=== PATIENT | female | born 1940 | race Caucasian/White ===

== ENCOUNTER 2016-08-02 12:39 | Emergency (ER) | payer MEDICARE, OTHER ==
[~2016-08-02] VITALS: Ht 160 cm; Wt 89.2 kg
[2016-08-02] MEDS ORDERED: SODIUM CHLORIDE FLUSH 10ML SYR IVF ONE ×2 (13:30→17:30)
[2016-08-02 14:01] LABS: HEMOGLOBIN 15.5 g/dL (11.7-16.4)
[2016-08-02 14:14] LABS: BLOOD UREA NITROGEN 19 mg/dL (7-18)
[2016-08-02 14:18] LABS: IS PT STATUS REG ER OR PRE ER? YES
[2016-08-02] MEDS ORDERED: SODIUM CHLORIDE 0.9% 1,000 ML IV ONE (17:25)
[2016-08-02] MEDS ORDERED: CEFTRIAXONE PMX 1GM/50ML 50 ML IV ONE (17:30)
[2016-08-02] MEDS ORDERED: LORazepam 2 MG/ML, 1ML IVPush ONE (17:30)
[2016-08-02] MEDS ORDERED: SODIUM CHLORIDE 0.9% 1,000ML IVBOLUS ONE (17:30)
[2016-08-02] MEDS ORDERED: CEFTRIAXONE PMX 1GM/50ML 50 ML ONE (18:11)
[2016-08-02] MEDS ORDERED: LORazepam 1MG TABLET ONE (18:11)
[2016-08-02] MEDS: AZITHROMYCIN 500 MG in SODIUM CHLORIDE 0.9% 250 ML IV ONE ×2 (18:18→19:11)
[2016-08-02 20:33] VITALS: BP 142/90
== END 2016-08-02 20:35 | disposition home or self-care (01) ==
LOC: ED 18:43
DX: Z76.0 Encounter for issue of repeat prescription (principal); J15.9 Unspecified bacterial pneumonia; E86.0 Dehydration; J44.9 Chronic obstructive pulmonary disease, unspecified; F41.9 Anxiety disorder, unspecified; I12.9 Hypertensive chronic kidney disease with stage 1 through stage 4 chronic kidney disease, or unspecified chronic kidney disease; N18.9 Chronic kidney disease, unspecified
CPT/HCPCS: 36415; 71010; 80048; 82040; 83605; 83880; 84145; 84484; 85025; 87040; 93005; 96365; 96367; 96375; 99285; J0456; J0696; J2060; J7030; J7050

== ENCOUNTER 2016-08-16 11:10 | Inpatient (IN) | payer MEDICARE, OTHER ==
[~2016-08-16] VITALS: Ht 160 cm; Wt 91.9 kg
[2016-08-16] MEDS ORDERED: SODIUM CHLORIDE 0.9% 1,000 ML IV ONE (11:37)
[2016-08-16] MEDS ORDERED: SODIUM CHLORIDE FLUSH 10ML SYR IVF ONE (12:00)
[2016-08-16 12:11] LABS: HEMOGLOBIN 14.3 g/dL (11.7-16.4)
[2016-08-16 12:23] LABS: BLOOD UREA NITROGEN 15 mg/dL (7-18)
[2016-08-16 12:29] LABS: ASPARTATE AMINO TRANSFERASE 16 U/L (15-37)
[2016-08-16 12:30] LABS: IS PT STATUS REG ER OR PRE ER? YES
[2016-08-16] MEDS ORDERED: CHOL20003 PO (14:02)
[2016-08-16] MEDS ORDERED: FURO20TA3 PO (14:02)
[2016-08-16] MEDS ORDERED: PRAV40TA2 PO (14:02)
[2016-08-16] MEDS ORDERED: OXYB5TAB7 PO (14:02)
[2016-08-16] MEDS ORDERED: ASPI-496 PO (14:02)
[2016-08-16] MEDS ORDERED: AMLO10TA2 PO (14:02)
[2016-08-16] MEDS ORDERED: LETR2.5T PO (14:02)
[2016-08-16] MEDS ORDERED: LORA1TAB PO (14:02)
[2016-08-16] MEDS ORDERED: METO50TA82 PO (14:02)
[2016-08-16] MEDS ORDERED: VENL150C6 PO (14:02)
[2016-08-16] MEDS ORDERED: ACET325T14 PO (14:02)
[2016-08-16] MEDS ORDERED: OMEP40CA6 PO (14:02)
[2016-08-16] MEDS ORDERED: LEVO750T6 PO (14:02)
[2016-08-16] MEDS ORDERED: PRED20TA PO (14:02)
[2016-08-16] MEDS ORDERED: POTASSIUM CHLORIDE 20 MEQ TAB.ER.PRT ONE (14:59)
[2016-08-16] MEDS ORDERED: POTASSIUM CHLORIDE 20 MEQ TAB.ER.PRT PO ONE (15:00)
[2016-08-16] MEDS ORDERED: LABETALOL 5MG/ML, 20ML IV PRN (15:00)
[2016-08-16] MEDS ORDERED: HYDROcodone/APAP 5/325 TABLET PO PRN (15:00)
[2016-08-16] MEDS ORDERED: ONDANSETRON 2MG/ML, 2ML IVP PRN (15:00)
[2016-08-16] MEDS ORDERED: MORPHINE SULFATE 4 MG/ML, 1ML IVPush PRN (15:00)
[2016-08-16 17:05] VITALS: BP 141/75
[2016-08-16] MEDS: ENOXAPARIN 40 MG/0.4 ML SQ SCH (17:08)
[2016-08-16] MEDS: SODIUM CHLORIDE 0.9% 1,000 ML IV SCH (17:08)
[2016-08-16] MEDS ORDERED: SUCRALFATE 1 GM/10 ML UDC PO PRN (18:30)
[2016-08-16 19:23] VITALS: BP 123/69
[2016-08-16] MEDS: OXYBUTYNIN CHLORIDE 5 MG TABLET PO SCH (21:03)
[2016-08-16] MEDS: PANTOPRAZOLE 20MG TABLET PO SCH (21:03)
[2016-08-16] MEDS: ATORVASTATIN 40 MG TABLET PO SCH (21:03)
[2016-08-17 01:04] VITALS: BP 161/87
[2016-08-17] MEDS: TEMAZEPAM 15 MG CAPSULE PO PRN ×2 (03:25→20:02)
[2016-08-17] MEDS: SODIUM CHLORIDE 0.9% 1,000 ML IV SCH ×2 (03:27→15:57)
[2016-08-17 04:52] LABS: BLOOD UREA NITROGEN 10 mg/dL (7-18)
[2016-08-17 07:08] VITALS: BP 165/75
[2016-08-17] MEDS ORDERED: PANTOPROZOLE 40MG TABLET PO SCH (07:30)
[2016-08-17] MEDS: PANTOPRAZOLE 20MG TABLET PO SCH ×2 (07:57→20:02)
[2016-08-17] MEDS: CLOPIDOGREL 75 MG TABLET PO SCH (07:57)
[2016-08-17] MEDS: OXYBUTYNIN CHLORIDE 5 MG TABLET PO SCH ×2 (07:57→20:02)
[2016-08-17] MEDS: VENLAFAXINE 75 MG CAP ER PO SCH (07:58)
[2016-08-17] MEDS: LETROZOLE 2.5 MG TABLET PO SCH (07:59)
[2016-08-17] MEDS ORDERED: VENLAFAXINE 75MG TABLET PO SCH (09:00)
[2016-08-17] MEDS: POTASSIUM CHLORIDE 20 MEQ TAB.ER.PRT PO SCH ×3 (11:35→15:52)
[2016-08-17 12:46] VITALS: BP 128/67
[2016-08-17] MEDS: ENOXAPARIN 40 MG/0.4 ML SQ SCH (15:52)
[2016-08-17] MEDS: ACETAMINOPHEN 325 MG TABLET PO PRN (15:57)
[2016-08-17] MEDS: ATORVASTATIN 40 MG TABLET PO SCH (20:02)
[2016-08-17 21:00] VITALS: BP 147/82
[2016-08-18 02:55] VITALS: BP 147/91
[2016-08-18] MEDS: SODIUM CHLORIDE 0.9% 1,000 ML IV SCH ×2 (05:32→21:19)
[2016-08-18 05:43] LABS: BLOOD UREA NITROGEN 10 mg/dL (7-18)
[2016-08-18 06:50] VITALS: BP 155/71
[2016-08-18] MEDS: LETROZOLE 2.5 MG TABLET PO SCH (08:57)
[2016-08-18] MEDS: CLOPIDOGREL 75 MG TABLET PO SCH (09:00)
[2016-08-18] MEDS: PANTOPRAZOLE 20MG TABLET PO SCH ×2 (09:00→21:19)
[2016-08-18] MEDS: OXYBUTYNIN CHLORIDE 5 MG TABLET PO SCH ×2 (09:00→21:19)
[2016-08-18] MEDS: VENLAFAXINE 75 MG CAP ER PO SCH (09:01)
[2016-08-18] MEDS: ACETAMINOPHEN 325 MG TABLET PO PRN ×2 (12:31→20:05)
[2016-08-18 13:33] VITALS: BP 102/51
[2016-08-18] MEDS: ENOXAPARIN 40 MG/0.4 ML SQ SCH (17:51)
[2016-08-18 19:20] VITALS: BP 132/84
[2016-08-18] MEDS: ATORVASTATIN 40 MG TABLET PO SCH (21:19)
[2016-08-19 01:00] VITALS: BP 135/79
[2016-08-19] MEDS: ACETAMINOPHEN 325 MG TABLET PO PRN (01:26)
[2016-08-19] MEDS: TEMAZEPAM 15 MG CAPSULE PO PRN (01:31)
[2016-08-19 07:00] VITALS: BP 153/103
[2016-08-19] MEDS: PANTOPRAZOLE 20MG TABLET PO SCH (08:12)
[2016-08-19] MEDS: LETROZOLE 2.5 MG TABLET PO SCH (08:13)
[2016-08-19] MEDS: VENLAFAXINE 75 MG CAP ER PO SCH (08:13)
[2016-08-19] MEDS: OXYBUTYNIN CHLORIDE 5 MG TABLET PO SCH (08:13)
[2016-08-19] MEDS: CLOPIDOGREL 75 MG TABLET PO SCH (08:13)
[2016-08-19] MEDS: SODIUM CHLORIDE 0.9% 1,000 ML IV SCH (09:50)
[2016-08-19] MEDS ORDERED: ATOR40TA78 PO (10:37)
[2016-08-19] MEDS ORDERED: SUCR1ORA2 PO (10:37)
[2016-08-19] MEDS ORDERED: CLOP75TA PO (10:37)
[2016-08-19] MEDS ORDERED: TEMA15CA6 PO (10:37)
[2016-08-19] MEDS ORDERED: Pantoprazole Sodium PO (10:37)
[2016-08-19] MEDS ORDERED: FEXO180T5 PO (10:50)
[2016-08-19 12:28] VITALS: BP 148/65
== END 2016-08-19 14:38 | disposition home or self-care (01) | DRG 70 ==
LOC: ED 13:15 → SUATTDRO 14:26 → EDIP 14:36 → 4WST 16:18
PROVIDERS: ADMIT Internal Medicine; ATTEND Internal Medicine
DX: G93.40 Encephalopathy, unspecified (principal); N17.0 Acute kidney failure with tubular necrosis; G45.9 Transient cerebral ischemic attack, unspecified; N39.0 Urinary tract infection, site not specified; J44.9 Chronic obstructive pulmonary disease, unspecified; K21.9 Gastro-esophageal reflux disease without esophagitis; E87.6 Hypokalemia; E78.5 Hyperlipidemia, unspecified; F41.9 Anxiety disorder, unspecified; I10 Essential (primary) hypertension; F32.9 Major depressive disorder, single episode, unspecified; K44.9 Diaphragmatic hernia without obstruction or gangrene; I51.7 Cardiomegaly; F41.1 Generalized anxiety disorder; Z85.3 Personal history of malignant neoplasm of breast; Z87.01 Personal history of pneumonia (recurrent); Z87.891 Personal history of nicotine dependence; Z90.710 Acquired absence of both cervix and uterus; Z88.2 Allergy status to sulfonamides; Z88.0 Allergy status to penicillin
CPT/HCPCS: 36415; 70450; 70551; 71010; 74220; 80048; 80053; 81001; 83605; 83880; 84439; 84443; 84484; 85025; 85610; 85730; 87040; 87086; 87324; 93005; 93306; 93880; 96360; 96361; J1650; J7030

== ENCOUNTER 2016-10-17 20:54 | Observation (INO) | payer MEDICARE, OTHER ==
[~2016-10-17] VITALS: Ht 160 cm; Wt 88.4 kg
[~2016-10-17 20:54] MED LIST: ACET325T14 PO; AMLO10TA2 PO; ASPI-496 PO; ATOR40TA78 PO; CHOL20003 PO; CLOP75TA PO; FEXO180T5 PO; FURO20TA3 PO; LETR2.5T PO; LEVO750T6 PO; LORA1TAB PO; METO50TA82 PO; OMEP40CA6 PO; OXYB5TAB7 PO; PRAV40TA2 PO; PRED20TA PO; Pantoprazole Sodium PO; SUCR1ORA2 PO; TEMA15CA6 PO; VENL150C6 PO
[2016-10-17] MEDS ORDERED: LORA1TAB PO (21:27)
[2016-10-17] MEDS ORDERED: TRAZ50TA18 PO (21:27)
[2016-10-17] MEDS ORDERED: SODIUM CHLORIDE FLUSH 10ML SYR IVF ONE (21:30)
[2016-10-17] MEDS ORDERED: ASPIRIN 81 MG TABLET CHEW PO ONE (21:30)
[2016-10-17] MEDS ORDERED: ASPIRIN 81 MG TABLET CHEW ONE (21:46)
[2016-10-17 22:01] LABS: ASPARTATE AMINO TRANSFERASE 17 U/L (15-37); BLOOD UREA NITROGEN 23 mg/dL (7-18)
[2016-10-17 22:12] LABS: IS PT STATUS REG ER OR PRE ER? YES
[2016-10-17] MEDS ORDERED: SODIUM CHLORIDE 0.9% 1,000 ML IV SCH (23:58)
[2016-10-18] MEDS ORDERED: ACETAMINOPHEN 325 MG TABLET PO SCH
[2016-10-18] MEDS ORDERED: TRAZODONE 50MG TABLET PO PRN
[2016-10-18] MEDS ORDERED: LORazepam 1MG TABLET PO PRN
[2016-10-18] MEDS ORDERED: morphine SULFATE 10 MG/ML, 1ML IVPush PRN
[2016-10-18 00:30] VITALS: BP 148/81
[2016-10-18] MEDS: TYLENOL MC SCH ×2 (00:30→08:18)
[2016-10-18 00:57] VITALS: BP 148/81
[2016-10-18 04:06] LABS: BLOOD UREA NITROGEN 24 mg/dL (7-18)
[2016-10-18 04:13] LABS: IS PT STATUS REG ER OR PRE ER? NO
[2016-10-18] MEDS ORDERED: REGADENOSON 0.4 MG/5 ML SYRINGE ONE (08:26)
[2016-10-18 08:28] VITALS: BP 154/92
[2016-10-18] MEDS ORDERED: FUROSEMIDE 20 MG TABLET PO SCH (09:00)
[2016-10-18] MEDS ORDERED: CHOLECALCIFEROL 1,000 UNIT TABLET PO SCH (09:00)
[2016-10-18] MEDS ORDERED: PANTOPRAZOLE 20MG TABLET PO SCH (09:00)
[2016-10-18] MEDS ORDERED: VENLAFAXINE 75 MG CAP ER PO SCH (09:00)
[2016-10-18] MEDS ORDERED: AMLODIPINE 5 MG TABLET PO SCH (09:00)
[2016-10-18] MEDS ORDERED: OXYBUTYNIN CHLORIDE 5 MG TABLET PO SCH (09:00)
[2016-10-18] MEDS ORDERED: CLOPIDOGREL 75 MG TABLET PO SCH (09:00)
[2016-10-18] MEDS ORDERED: METO25TA4 PO (15:10)
[2016-10-18] MEDS ORDERED: APIX5TAB PO (15:10)
[2016-10-18] MEDS ORDERED: METOPROLOL TARTRATE 25 MG TABLET PO SCH (18:00)
[2016-10-18] MEDS ORDERED: ATORVASTATIN 40 MG TABLET PO SCH (21:00)
== END 2016-10-18 16:04 | disposition home or self-care (01) ==
LOC: ED 22:30 → INTOOBSV 22:34 → EDIP 22:34 → 5SO 10-18 00:17
PROVIDERS: ADMIT Internal Medicine; ATTEND Internal Medicine
DX: I48.91 Unspecified atrial fibrillation (principal); N17.9 Acute kidney failure, unspecified; I13.0 Hypertensive heart and chronic kidney disease with heart failure and stage 1 through stage 4 chronic kidney disease, or unspecified chronic kidney disease; I50.30 Unspecified diastolic (congestive) heart failure; N18.9 Chronic kidney disease, unspecified; E66.9 Obesity, unspecified; E78.5 Hyperlipidemia, unspecified; F17.200 Nicotine dependence, unspecified, uncomplicated; F33.9 Major depressive disorder, recurrent, unspecified; J44.9 Chronic obstructive pulmonary disease, unspecified; K21.9 Gastro-esophageal reflux disease without esophagitis; K44.9 Diaphragmatic hernia without obstruction or gangrene; Z79.02 Long term (current) use of antithrombotics/antiplatelets; Z85.3 Personal history of malignant neoplasm of breast; Z86.73 Personal history of transient ischemic attack (TIA), and cerebral infarction without residual deficits; Z87.01 Personal history of pneumonia (recurrent); Z79.01 Long term (current) use of anticoagulants
CPT/HCPCS: 36415; 71010; 78452; 80048; 80053; 83735; 83880; 84100; 84439; 84443; 84484; 85025; 85610; 85730; 93005; 93017; 93306; 96360; 96361; 99285; A9502; C9898; G0378; J2785; J7030

== ENCOUNTER 2018-12-23 10:29 | Outpatient (CLI) | payer MEDICARE, OTHER | END 2018-12-23 23:59 | disposition home or self-care (01) | LOC: CFH 10:29 | PROVIDERS: ATTEND Nurse Practitioner Family | DX: I35.8 Other nonrheumatic aortic valve disorders (principal); I10 Essential (primary) hypertension; I27.20 Pulmonary hypertension, unspecified | CPT/HCPCS: 78452; 93017; 93306; A9502; J2785 ==

== ENCOUNTER 2019-11-04 11:08 | Emergency (ER) | payer MEDICARE, OTHER ==
[~2019-11-04] VITALS: Ht 167.6 cm; Wt 82.0 kg
[~2019-11-04 11:08] MED LIST changes: -AMLO10TA2 PO; +AMLO10TA8 PO; +APIX5TAB PO; +CHOL2000 PO; -CHOL20003 PO; +FEXO180T15 PO; -FEXO180T5 PO; -LETR2.5T PO; +LETR2.5T3 PO; +METO25TA4 PO; +OMEP40CA42 PO; -OMEP40CA6 PO; +OXYB5TAB10 PO; -OXYB5TAB7 PO; -SUCR1ORA2 PO; +SUCR1ORA5 PO; +TRAZ50TA66 PO
--- NOTE | 2019-11-04 11:46 | NUR ---
PT BIBA, REPORT TAKEN FROM EMS. PT C/O FRONTAL HEADACHE ONSET AT 0200 THIS AM HX SAME ASSOICATED WITH HTN PT TOOK PRN CLONIDINE AT 0200, 0500 AND 0900 TODAY PT DENIES FALL/TRAUMA- TAKES ELIQUIS FOR AFIB. PT A&OX4, NO NEURO DEFICITS, NO DRIFT, BILATERAL GRASP EQUAL. SPEECH CLEAR. PT ON ALL MONITORS, CALL LIGHT IN REACH. PT TO HAVE CT AND LABS.
--- NOTE | 2019-11-04 12:30 | NUR ---
LATE ENTRY FOR 1230: PT RESTING ON GURNEY, RESPS EVEN AND UNLABORED. 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 DAUGHTER AT BEDSIDE, UPDATED WITH POC.
[2019-11-04 12:40] LABS: BASOPHILS % (AUTO) 0 % (0-1); EOSINOPHILS # (AUTO) 0.07 x10^3/uL (0-0.4); EOSINOPHILS % (AUTO) 1 % (1-7); LYMPHOCYTES # (AUTO) 0.65 x10^3/uL (1-3.4); LYMPHOCYTES % (AUTO) 7 % (22-44); MD NO; MEAN CORPUSCULAR HEMOGLOBIN 26.2 pg (27.0-34.8); MEAN CORPUSCULAR HGB CONC 32.5 g/dL (32.4-35.8); MEAN CORPUSCULAR VOLUME 80.5 fL (80-100); MEAN PLATELET VOLUME 10.4 fL (7.4-10.4); MONOCYTES # (AUTO) 0.73 x10^3/uL (0.2-0.8); MONOCYTES % (AUTO) 8 % (2-9); NEUTROPHILS # (AUTO) 8.08 x10^3/uL (1.8-6.8); NEUTROPHILS % (AUTO) 85 % (42-75); PLATELET COUNT 318 x10^3/uL (130-400); RED BLOOD COUNT 5.87 x10^6/uL (3.82-5.3); RED CELL DISTRIBUTION WIDTH 15.8 % (9.6-15.2)
[2019-11-04 12:44] LABS: ALBUMIN 3.4 g/dL (3.4-5.0); ANION GAP 5 mmol/L (5-15); CALCIUM 9.5 mg/dL (8.5-10.1); CHLORIDE 108 mmol/L (98-107); CREATININE 0.85 mg/dL (0.55-1.02)
--- NOTE | 2019-11-04 13:37 | NUR ---
PT TAKEN TO MRI AT THIS TIME, NADN AT TRANSPORT.
--- NOTE | 2019-11-04 14:05 | NUR ---
PT REMAINS IN MRI.
--- NOTE | 2019-11-04 14:20 | NUR ---
EKG TAKEN BY EDT, REVIEWED BY ANTONINA COATES. ANTONINA COATES AT BEDSIDE TO UPDATE PT WITH POC AND RESULTS.
[2019-11-04 14:45] VITALS: BP 162/77
--- NOTE | 2019-11-04 14:50 | NUR ---
REPORT GIVEN TO CHRISTEN ARDON AT BEDSIDE. PT A&O, RESPS EVEN AND UNLABORED, PT IS SINUS VETO ON MIDWIFE WITH NO ECTOPY. AWAITING DC PAPERWORK FROM AT THIS TIME.
--- NOTE | 2019-11-04 14:50 | NUR ---
BEDSIDE REPORT RECEIVED FROM CHRISTEN JACKSON. PLAN OF CARE DISCUSSED
--- NOTE | 2019-11-04 15:10 | NUR ---
Patient given discharge instructions and they have confirmed that they understand the instructions. Patient ambulatory with steady gait in room, wheeled to discharge for safety. Family with patient for safe discharge and transportation
== END 2019-11-04 15:12 | disposition home or self-care (01) ==
LOC: ED 13:03
DX: G44.219 Episodic tension-type headache, not intractable (principal); F17.200 Nicotine dependence, unspecified, uncomplicated; I10 Essential (primary) hypertension; J44.9 Chronic obstructive pulmonary disease, unspecified; I48.91 Unspecified atrial fibrillation; R00.1 Bradycardia, unspecified; Z85.3 Personal history of malignant neoplasm of breast
CPT/HCPCS: 36415; 70450; 70551; 80048; 82040; 85025; 93005; 99285

== ENCOUNTER 2019-12-18 15:23 | Inpatient (IN) | payer MEDICARE, OTHER ==
[~2019-12-18] VITALS: Ht 160 cm; Wt 80.9 kg
[2019-12-18 15:57] LABS: MEAN CORPUSCULAR HEMOGLOBIN 25.9 pg (27.0-34.8); MEAN CORPUSCULAR HGB CONC 31.9 g/dL (32.4-35.8); MEAN PLATELET VOLUME 9.8 fL (7.4-10.4); PLATELET COUNT 306 x10^3/uL (130-400); RED BLOOD COUNT 5.99 x10^6/uL (3.82-5.3); RED CELL DISTRIBUTION WIDTH 17.9 % (9.6-15.2)
[2019-12-18] MEDS ORDERED: SODIUM CHLORIDE FLUSH 10ML SYR IVF ONE (16:00)
[2019-12-18 16:07] LABS: ALANINE AMINOTRANSFERASE 13 U/L (12-78); ALBUMIN 3.4 g/dL (3.4-5.0); ANION GAP 7 mmol/L (5-15); CALCIUM 9.4 mg/dL (8.5-10.1); CHLORIDE 109 mmol/L (98-107)
[2019-12-18 16:11] LABS: ALKALINE PHOSPHATASE 106 U/L (45-117); BILIRUBIN,TOTAL 0.9 mg/dL (0.2-1.0); TOTAL PROTEIN 6.7 g/dL (6.4-8.2)
[2019-12-18] MEDS ORDERED: ASPIRIN 81 MG TABLET CHEW PO ONE (16:30)
[2019-12-18 16:46] LABS: BASOPHILS # (AUTO) 0.16 x10^3/uL (0-0.1); BASOPHILS % (AUTO) 1 % (0-1); EOSINOPHILS # (AUTO) 0.01 x10^3/uL (0-0.4); EOSINOPHILS % (AUTO) 0 % (1-7); LYMPHOCYTES # (AUTO) 0.15 x10^3/uL (1-3.4); LYMPHOCYTES % (AUTO) 1 % (22-44); MD SCAN; MONOCYTES # (AUTO) 0.31 x10^3/uL (0.2-0.8); MONOCYTES % (AUTO) 2 % (2-9); NEUTROPHILS % (AUTO) 96 % (42-75)
[2019-12-18] MEDS ORDERED: ASPIRIN 81 MG TABLET CHEW ONE (16:50)
[2019-12-18] MEDS ORDERED: OMEP40CA42 PO (16:58)
[2019-12-18] MEDS ORDERED: VALS40TA2 PO (16:58)
[2019-12-18] MEDS ORDERED: LORA-445 PO (16:58)
[2019-12-18] MEDS ORDERED: FURO20TA3 PO (16:58)
[2019-12-18] MEDS ORDERED: OXYB5TAB10 PO (16:58)
[2019-12-18] MEDS ORDERED: CLON0.1T22 PO (16:58)
[2019-12-18] MEDS ORDERED: ACETAMINOPHEN 500 MG TABLET PO ONE (17:00)
[2019-12-18] MEDS ORDERED: ACETAMINOPHEN 500 MG TABLET ONE (17:00)
[2019-12-18] MEDS ORDERED: FUROSEMIDE 20 MG/2 ML IV ONE (18:00)
[2019-12-18] MEDS ORDERED: FUROSEMIDE 20 MG/2 ML ONE (18:27)
--- NOTE | 2019-12-18 19:02 | NUR ---
FIRST PT CONTACT,RESTING QUEITLY, AWARE OF PLAN OF CARE AT THIS TIME. AWAIT HOSPITALIST FOR EVAL.
[2019-12-18] MEDS ORDERED: LIDODERM 5% PATCH TD PRN (19:30)
[2019-12-18] MEDS ORDERED: hydrALAzine 20 MG/ML, 1ML IVPush PRN (19:30)
[2019-12-18] MEDS ORDERED: LIDODERM REMOVE PATCH NOTE XX PRN (20:00)
--- NOTE | 2019-12-18 20:04 | NUR ---
PT AGREEABLE TO STAYING AT THIS TIME. NEW ROOM ASSIGNMENT REC, AWAIT NURSE AVAILABILITY FOR REPORT. PT WITHOUT CURRENT COMPLIANTS, URINE COLLECTED AND SENT.
[2019-12-18 20:19] LABS: MICROSCOPIC AUTO
[2019-12-18] MEDS ORDERED: CEFTRIAXONE PMX 1GM/50ML 50 ML IVPB ONE (21:00)
--- NOTE | 2019-12-18 21:13 | NUR ---
Report given to CHRISTEN Parsons. Patient to be transferred to room 492-2.
[2019-12-18 21:53] VITALS: BP 128/73
[2019-12-18] MEDS ORDERED: APIXABAN 5 MG TABLET PO SCH (22:00)
[2019-12-18] MEDS: ACETAMINOPHEN 325 MG TABLET PO PRN (23:31)
[2019-12-18] MEDS: LORazepam 0.5MG TABLET PO SCH (23:31)
[2019-12-18] MEDS: CEFTRIAXONE PMX 1GM/50ML 50 ML IV SCH (23:31)
[2019-12-18] MEDS: OXYBUTYNIN CHLORIDE 5 MG TABLET PO SCH (23:31)
[2019-12-18] MEDS: NICOTINE 14MG/24 HR PATCH.TD24 TD SCH (23:33)
[2019-12-19 00:12] VITALS: BP 116/72
[2019-12-19] MEDS ORDERED: HEPARIN 25,000 UNITS/250ML PMX 250 ML IV PRN (01:30)
[2019-12-19] MEDS ORDERED: MORPHINE SULFATE 4 MG/ML, 1ML IVPush PRN (01:30)
[2019-12-19] MEDS ORDERED: HEPARIN 5,000 UNITS/ML, 1ML IV PRN (01:30)
[2019-12-19 02:20] VITALS: BP 130/80
[2019-12-19] MEDS: morphine SULFATE 10 MG/ML, 1ML IVPush PRN ×2 (02:22→23:57)
[2019-12-19] MEDS ORDERED: NITROGLYCERIN 0.4 MG/SPRAY SL PRN (02:30)
[2019-12-19] MEDS ORDERED: NITROGLYCERIN 0.4 MG BOTTLE (25 TABS) SL PRN (02:30)
[2019-12-19 03:53] LABS: MEAN CORPUSCULAR HEMOGLOBIN 26.1 pg (27.0-34.8); MEAN CORPUSCULAR HGB CONC 32.5 g/dL (32.4-35.8); MEAN PLATELET VOLUME 9.8 fL (7.4-10.4); PLATELET COUNT 262 x10^3/uL (130-400); RED BLOOD COUNT 5.47 x10^6/uL (3.82-5.3); RED CELL DISTRIBUTION WIDTH 17.9 % (9.6-15.2)
[2019-12-19 04:01] LABS: ANION GAP 7 mmol/L (5-15); CHLORIDE 107 mmol/L (98-107); CREATININE 0.81 mg/dL (0.55-1.02)
[2019-12-19 04:11] LABS: BASOPHILS # (AUTO) 0.03 x10^3/uL (0-0.1); BASOPHILS % (AUTO) 0 % (0-1); EOSINOPHILS # (AUTO) 0.02 x10^3/uL (0-0.4); EOSINOPHILS % (AUTO) 0 % (1-7); LYMPHOCYTES # (AUTO) 0.53 x10^3/uL (1-3.4); LYMPHOCYTES % (AUTO) 5 % (22-44); MD SCAN; MONOCYTES # (AUTO) 0.81 x10^3/uL (0.2-0.8); MONOCYTES % (AUTO) 7 % (2-9); NEUTROPHILS # (AUTO) 9.95 x10^3/uL (1.8-6.8); NEUTROPHILS % (AUTO) 88 % (42-75)
[2019-12-19 07:13] VITALS: BP 148/74
[2019-12-19] MEDS: OMEPRAZOLE 20 MG CAPSULE.DR PO SCH (08:18)
[2019-12-19] MEDS: LORazepam 0.5MG TABLET PO SCH ×3 (08:18→20:51)
[2019-12-19] MEDS: OXYBUTYNIN CHLORIDE 5 MG TABLET PO SCH ×2 (08:18→20:51)
[2019-12-19] MEDS: FUROSEMIDE 20 MG TABLET PO SCH (08:19)
[2019-12-19] MEDS: ACETAMINOPHEN 325 MG TABLET PO PRN ×3 (09:28→19:31)
[2019-12-19 12:16] VITALS: BP 136/81
[2019-12-19 19:32] VITALS: BP 165/78
[2019-12-19] MEDS: MELATONIN 5 MG TABLET PO PRN (20:51)
[2019-12-19] MEDS: APIXABAN 5 MG TABLET PO SCH (20:51)
[2019-12-19] MEDS: ONDANSETRON ODT 4 MG PO PRN (20:51)
[2019-12-19] MEDS: VALSARTAN 80 MG TABLET PO SCH (20:52)
[2019-12-19] MEDS: CEFTRIAXONE PMX 1GM/50ML 50 ML IV SCH (22:30)
[2019-12-19] MEDS: NICOTINE 14MG/24 HR PATCH.TD24 TD SCH (22:56)
[2019-12-19 23:55] VITALS: BP 170/90
[2019-12-20 00:55] VITALS: BP 155/70
[2019-12-20] MEDS: morphine SULFATE 10 MG/ML, 1ML IVPush PRN ×5 (03:00→20:19)
[2019-12-20] MEDS: ONDANSETRON ODT 4 MG PO PRN ×4 (03:21→20:56)
[2019-12-20] MEDS: APIXABAN 5 MG TABLET PO SCH ×2 (08:05→20:18)
[2019-12-20] MEDS: OMEPRAZOLE 20 MG CAPSULE.DR PO SCH (08:05)
[2019-12-20] MEDS: FUROSEMIDE 20 MG TABLET PO SCH (08:05)
[2019-12-20] MEDS: LORazepam 0.5MG TABLET PO SCH ×3 (08:06→20:18)
[2019-12-20] MEDS: OXYBUTYNIN CHLORIDE 5 MG TABLET PO SCH ×2 (08:06→20:18)
[2019-12-20 08:11] VITALS: BP 145/86
[2019-12-20] MEDS: VALSARTAN 80 MG TABLET PO SCH ×2 (08:15→20:17)
[2019-12-20] MEDS ORDERED: SODIUM CHLORIDE NASAL SPRAY 45ML BOTTLE NAS PRN (11:30)
[2019-12-20 13:38] VITALS: BP 152/81
[2019-12-20] MEDS: FLUTICASONE NASAL SPRAY 16GM NAS SCH ×2 (16:42→20:17)
[2019-12-20 18:48] VITALS: BP 156/83
[2019-12-20] MEDS: ACETAMINOPHEN 325 MG TABLET PO PRN (20:18)
[2019-12-20] MEDS: DOCUSATE 100 MG CAPSULE PO PRN (20:18)
[2019-12-20 21:11] VITALS: BP 129/85
[2019-12-20] MEDS: CEFTRIAXONE PMX 1GM/50ML 50 ML IV SCH (22:39)
[2019-12-20] MEDS: NICOTINE 14MG/24 HR PATCH.TD24 TD SCH (22:50)
[2019-12-20 23:56] VITALS: BP 116/65
[2019-12-21] MEDS: morphine SULFATE 10 MG/ML, 1ML IVPush PRN ×3 (00:06→20:10)
[2019-12-21] MEDS: ONDANSETRON ODT 4 MG PO PRN ×2 (03:20→16:22)
[2019-12-21 05:22] LABS: MEAN CORPUSCULAR HEMOGLOBIN 25.9 pg (27.0-34.8); MEAN CORPUSCULAR HGB CONC 31.8 g/dL (32.4-35.8); MEAN PLATELET VOLUME 10.1 fL (7.4-10.4); PLATELET COUNT 259 x10^3/uL (130-400); RED BLOOD COUNT 5.73 x10^6/uL (3.82-5.3); RED CELL DISTRIBUTION WIDTH 17.6 % (9.6-15.2)
[2019-12-21 05:34] LABS: TROPONIN I 0.868 ng/mL (0.000-0.045)
[2019-12-21 07:06] LABS: MD YES
[2019-12-21 07:09] LABS: <PLATELET ESTIMATE> ADEQUATE; <PLT MORPHOLOGY> NORMAL PLT MORPH; ANISOCYTOSIS 1+; BAND#(MANUAL) 0.13 x10^3/uL; BANDS%(MANUAL) 2 % (0-7); BASOS#(MANUAL) 0.06 x10^3/uL (0-0.1); BASOS% (MANUAL) 1 % (0-1); EOS#(MANUAL) 0.06 x10^3/uL (0.0-0.4); EOS% (MANUAL) 1 % (1-7); LYMPH#(MANUAL) 1.09 x10^3/uL (1-3.4); LYMPHS% (MANUAL) 17 % (22-44); METAMYELOCYTES# (MANUAL) 0.26 x10^3/uL (0-0); METAMYELOCYTES% (MANUAL) 4 % (0-1); MONOS#(MANUAL) 0.83 x10^3/uL (0.3-2.7); MONOS% (MANUAL) 13 % (2-9); SEG#(MANUAL) 3.97 x10^3/uL (1.8-6.8); SEGS% (MANUAL) 62 % (42-75)
[2019-12-21 07:43] VITALS: BP 129/75
[2019-12-21] MEDS: APIXABAN 5 MG TABLET PO SCH ×2 (08:03→20:10)
[2019-12-21] MEDS: OMEPRAZOLE 20 MG CAPSULE.DR PO SCH (08:04)
[2019-12-21] MEDS: LORazepam 0.5MG TABLET PO SCH ×3 (08:04→20:10)
[2019-12-21] MEDS: OXYBUTYNIN CHLORIDE 5 MG TABLET PO SCH ×2 (08:05→20:10)
[2019-12-21] MEDS: VALSARTAN 80 MG TABLET PO SCH ×2 (08:05→20:09)
[2019-12-21] MEDS: FLUTICASONE NASAL SPRAY 16GM NAS SCH ×2 (08:07→20:11)
[2019-12-21] MEDS: methylPREDNISolone SOD SUCC 40 MG/ML IVPush SCH ×3 (09:51→20:11)
[2019-12-21] MEDS: DILTIAZEM 30 MG TABLET PO SCH ×3 (09:51→20:09)
[2019-12-21] MEDS ORDERED: REGADENOSON 0.4 MG/5 ML SYRINGE ONE (10:56)
[2019-12-21] MEDS: OXYcodone/APAP 5/325MG TABLET PO PRN (12:14)
[2019-12-21] MEDS: FUROSEMIDE 20 MG TABLET PO SCH (13:44)
[2019-12-21 14:02] VITALS: BP 116/68
[2019-12-21 20:05] VITALS: BP 119/72
[2019-12-21] MEDS: MELATONIN 5 MG TABLET PO PRN (21:00)
[2019-12-21] MEDS: NICOTINE 14MG/24 HR PATCH.TD24 TD SCH (22:21)
[2019-12-21] MEDS: CEFTRIAXONE PMX 1GM/50ML 50 ML IV SCH (22:21)
[2019-12-21] MEDS: ACETAMINOPHEN 325 MG TABLET PO PRN (23:46)
[2019-12-22 02:34] VITALS: BP 129/69
[2019-12-22] MEDS: DILTIAZEM 30 MG TABLET PO SCH ×3 (02:37→14:38)
[2019-12-22] MEDS: methylPREDNISolone SOD SUCC 40 MG/ML IVPush SCH ×2 (02:38→08:28)
[2019-12-22] MEDS: morphine SULFATE 10 MG/ML, 1ML IVPush PRN (02:51)
[2019-12-22] MEDS: ONDANSETRON ODT 4 MG PO PRN ×3 (02:51→18:32)
[2019-12-22] MEDS: OXYcodone/APAP 5/325MG TABLET PO PRN (06:26)
[2019-12-22 06:28] VITALS: BP 146/87
[2019-12-22] MEDS: LORazepam 0.5MG TABLET PO SCH ×3 (08:28→20:15)
[2019-12-22] MEDS: VALSARTAN 80 MG TABLET PO SCH ×2 (08:28→20:15)
[2019-12-22] MEDS: APIXABAN 5 MG TABLET PO SCH ×2 (08:28→20:14)
[2019-12-22] MEDS: OXYBUTYNIN CHLORIDE 5 MG TABLET PO SCH ×2 (08:28→20:14)
[2019-12-22] MEDS: OMEPRAZOLE 20 MG CAPSULE.DR PO SCH (08:29)
[2019-12-22] MEDS: FUROSEMIDE 20 MG TABLET PO SCH (08:29)
[2019-12-22] MEDS: FLUTICASONE NASAL SPRAY 16GM NAS SCH ×2 (08:31→20:15)
[2019-12-22] MEDS ORDERED: GUAIFENESIN/DM 100-10MG, 5ML UDC PO PRN (09:30)
[2019-12-22] MEDS: POLYETHYLENE GLYCOL 17 GM PACKET PO PRN (10:43)
[2019-12-22] MEDS: DOCUSATE 100 MG CAPSULE PO PRN ×2 (10:43→20:15)
[2019-12-22] MEDS: ACETAMINOPHEN 325 MG TABLET PO PRN ×3 (11:49→20:14)
[2019-12-22 12:19] VITALS: BP 123/69
[2019-12-22] MEDS ORDERED: MAGNESIUM CITRATE 300ML ORAL SOL PO PRN (17:30)
[2019-12-22 20:08] VITALS: BP 120/72
[2019-12-22] MEDS: DILTIAZEM 60 MG CAP.ER.12H PO SCH (20:14)
[2019-12-22] MEDS: MELATONIN 5 MG TABLET PO PRN (20:15)
[2019-12-22] MEDS: CEFTRIAXONE PMX 1GM/50ML 50 ML IV SCH (22:37)
[2019-12-22] MEDS: NICOTINE 14MG/24 HR PATCH.TD24 TD SCH (22:38)
[2019-12-22 23:19] VITALS: BP 142/82
[2019-12-23] MEDS: ONDANSETRON ODT 4 MG PO PRN (02:35)
[2019-12-23] MEDS: ACETAMINOPHEN 325 MG TABLET PO PRN ×2 (02:35→06:32)
[2019-12-23 05:26] LABS: MEAN CORPUSCULAR HEMOGLOBIN 25.4 pg (27.0-34.8); MEAN CORPUSCULAR HGB CONC 31.4 g/dL (32.4-35.8); MEAN PLATELET VOLUME 9.9 fL (7.4-10.4); PLATELET COUNT 346 x10^3/uL (130-400); RED BLOOD COUNT 5.92 x10^6/uL (3.82-5.3); RED CELL DISTRIBUTION WIDTH 16.9 % (9.6-15.2)
[2019-12-23 05:27] LABS: ALBUMIN 2.9 g/dL (3.4-5.0); ANION GAP 3 mmol/L (5-15); CALCIUM 9.8 mg/dL (8.5-10.1); CHLORIDE 103 mmol/L (98-107)
[2019-12-23 05:31] LABS: ALANINE AMINOTRANSFERASE 19 U/L (12-78); ALKALINE PHOSPHATASE 81 U/L (45-117); BILIRUBIN,TOTAL 0.3 mg/dL (0.2-1.0); CREATININE 0.82 mg/dL (0.55-1.02); TOTAL PROTEIN 6.4 g/dL (6.4-8.2)
[2019-12-23 06:13] LABS: BASOPHILS # (AUTO) 0.01 x10^3/uL (0-0.1); BASOPHILS % (AUTO) 0 % (0-1); EOSINOPHILS % (AUTO) 0 % (1-7); LYMPHOCYTES # (AUTO) 0.45 x10^3/uL (1-3.4); LYMPHOCYTES % (AUTO) 3 % (22-44); MD SCAN; MONOCYTES % (AUTO) 2 % (2-9); NEUTROPHILS # (AUTO) 14.41 x10^3/uL (1.8-6.8); NEUTROPHILS % (AUTO) 95 % (42-75)
[2019-12-23 07:48] VITALS: BP 158/85
[2019-12-23] MEDS: APIXABAN 5 MG TABLET PO SCH (07:49)
[2019-12-23] MEDS: DILTIAZEM 60 MG CAP.ER.12H PO SCH (07:49)
[2019-12-23] MEDS: OMEPRAZOLE 20 MG CAPSULE.DR PO SCH (07:49)
[2019-12-23] MEDS: OXYBUTYNIN CHLORIDE 5 MG TABLET PO SCH (07:50)
[2019-12-23] MEDS: LORazepam 0.5MG TABLET PO SCH (07:50)
[2019-12-23] MEDS: VALSARTAN 80 MG TABLET PO SCH (07:50)
[2019-12-23] MEDS: FUROSEMIDE 20 MG TABLET PO SCH (07:50)
[2019-12-23] MEDS: POLYETHYLENE GLYCOL 17 GM PACKET PO PRN (07:57)
[2019-12-23] MEDS: FLUTICASONE NASAL SPRAY 16GM NAS SCH (07:57)
[2019-12-23] MEDS ORDERED: BISACODYL 10 MG SUPP PR PRN (09:30)
[2019-12-23 09:55] VITALS: BP 145/78
[2019-12-23 14:20] VITALS: BP 105/66
[2019-12-23] MEDS ORDERED: DILT60CA PO (16:31)
[2019-12-23] MEDS ORDERED: PRED10TA PO (16:31)
[2019-12-23] MEDS ORDERED: OMEP-110 PO (17:57)
[2019-12-23] MEDS ORDERED: MELA3TAB31 PO (17:57)
== END 2019-12-23 19:54 | disposition home or self-care (01) | DRG 871 ==
LOC: ED 16:03 → EDIP 17:53 → 4EST 21:52 → 5SO 12-20 20:48
PROVIDERS: ADMIT Hospitalist; ATTEND Internal Medicine
DX: A41.9 Sepsis, unspecified organism (principal); J96.01 Acute respiratory failure with hypoxia; I21.A1 Myocardial infarction type 2; N39.0 Urinary tract infection, site not specified; I13.0 Hypertensive heart and chronic kidney disease with heart failure and stage 1 through stage 4 chronic kidney disease, or unspecified chronic kidney disease; D68.69 Other thrombophilia; I50.32 Chronic diastolic (congestive) heart failure; I48.0 Paroxysmal atrial fibrillation; N18.9 Chronic kidney disease, unspecified; B96.20 Unspecified Escherichia coli [E. coli] as the cause of diseases classified elsewhere; F41.9 Anxiety disorder, unspecified; F32.9 Major depressive disorder, single episode, unspecified; F17.210 Nicotine dependence, cigarettes, uncomplicated; K21.9 Gastro-esophageal reflux disease without esophagitis; E78.5 Hyperlipidemia, unspecified; J43.9 Emphysema, unspecified; Z66 Do not resuscitate; K59.00 Constipation, unspecified; Z20.828 Contact with and (suspected) exposure to other viral communicable diseases; Z79.01 Long term (current) use of anticoagulants; Z85.3 Personal history of malignant neoplasm of breast; Z86.73 Personal history of transient ischemic attack (TIA), and cerebral infarction without residual deficits; Z90.710 Acquired absence of both cervix and uterus; Z88.2 Allergy status to sulfonamides
CPT/HCPCS: 36415; 70210; 70450; 71045; 76700; 78452; 80048; 80053; 81001; 83735; 83880; 84443; 84484; 85025; 85520; 87077; 87086; 87186; 87635; 93005; 93017; 93308; 96374; G0378; J0696; J2785; Q0162; A9502; J0360; J1940; J2270; J2920; J7512

== ENCOUNTER 2020-01-24 22:56 | Emergency (ER) | payer MEDICARE, OTHER ==
[~2020-01-24 22:56] MED LIST changes: +CLON0.1T22 PO; +DILT60CA PO; +LORA-445 PO; +MELA3TAB31 PO; +OMEP-110 PO; +PRED10TA PO; +VALS40TA2 PO
--- NOTE | 2020-01-24 23:06 | NUR ---
EKG DONE ON ARRIVAL.
--- NOTE | 2020-01-24 23:09 | NUR ---
PT SITTING IN BED, RESPIRATIONS EVEN AND UNLABORED. CONNECTED TO CARDIAC, BP AND O2 MONITORS. BEDRAILS UP X2, CALL LIGHT IN REACH. FSBG 92 PER EMS.
[2020-01-25 00:09] LABS: ALANINE AMINOTRANSFERASE 16 U/L (12-78); ALBUMIN 3.5 g/dL (3.4-5.0); ANION GAP 6 mmol/L (5-15); CALCIUM 9.4 mg/dL (8.5-10.1); CHLORIDE 110 mmol/L (98-107); CREATININE 1.01 mg/dL (0.55-1.02)
[2020-01-25 00:13] LABS: ALKALINE PHOSPHATASE 111 U/L (45-117); BILIRUBIN,TOTAL 0.3 mg/dL (0.2-1.0); TOTAL PROTEIN 6.5 g/dL (6.4-8.2); TROPONIN I < 0.015 ng/mL (0.000-0.045)
[2020-01-25 00:21] LABS: MICROSCOPIC AUTO
[2020-01-25 00:23] LABS: MEAN CORPUSCULAR HEMOGLOBIN 27.2 pg (27.0-34.8); MEAN CORPUSCULAR HGB CONC 32.3 g/dL (32.4-35.8); MEAN CORPUSCULAR VOLUME 84.3 fL (80-100); MEAN PLATELET VOLUME 9.6 fL (7.4-10.4); PLATELET COUNT 338 x10^3/uL (130-400); RED BLOOD COUNT 5.75 x10^6/uL (3.82-5.3); RED CELL DISTRIBUTION WIDTH 22.7 % (9.6-15.2)
[2020-01-25 00:44] LABS: ANISOCYTOSIS 2+; BASOPHILS # (AUTO) 0.07 x10^3/uL (0-0.1); BASOPHILS % (AUTO) 1 % (0-1); EOSINOPHILS # (AUTO) 0.03 x10^3/uL (0-0.4); EOSINOPHILS % (AUTO) 0 % (1-7); LYMPHOCYTES # (AUTO) 0.95 x10^3/uL (1-3.4); LYMPHOCYTES % (AUTO) 13 % (22-44); MD MORPH REVIEW ONLY; MONOCYTES # (AUTO) 0.44 x10^3/uL (0.2-0.8); MONOCYTES % (AUTO) 6 % (2-9); NEUTROPHILS # (AUTO) 6.06 x10^3/uL (1.8-6.8); NEUTROPHILS % (AUTO) 80 % (42-75); OVALOCYTES 1+
[2020-01-25 00:45] LABS: <PLATELET ESTIMATE> ADEQUATE; LARGE PLATELETS 1+; MICROCYTOSIS 1+
--- NOTE | 2020-01-25 01:13 | NUR ---
PT REMAINS LAYING IN BED, NO SIGNS OF DISTRESS, RESPIRATIONS EVEN AND UNLABORED. ALL NEEDS MET AT THIS TIME.
--- NOTE | 2020-01-25 01:23 | NUR ---
ERP BACK TO BEDSIDE TO UPDATE PT ON POC. PT STATES SHE'S FEELING BETTER NOW.
[2020-01-25 01:38] VITALS: BP 139/79
== END 2020-01-25 01:40 | disposition home or self-care (01) ==
LOC: ED 23:55
DX: R53.1 Weakness (principal); R42 Dizziness and giddiness; R11.0 Nausea; R10.9 Unspecified abdominal pain; I11.0 Hypertensive heart disease with heart failure; I50.9 Heart failure, unspecified; J44.9 Chronic obstructive pulmonary disease, unspecified; I48.91 Unspecified atrial fibrillation; I25.2 Old myocardial infarction; F17.200 Nicotine dependence, unspecified, uncomplicated; Z86.73 Personal history of transient ischemic attack (TIA), and cerebral infarction without residual deficits
CPT/HCPCS: 36415; 71045; 80053; 81001; 84484; 85025; 87040; 93005; 99285

== ENCOUNTER → 2020-02-18 | Outpatient (CLI) | payer MEDICARE, OTHER | END | disposition home or self-care (01) | LOC: CFH 10:09 | PROVIDERS: ATTEND Internal Medicine | DX: R91.8 Other nonspecific abnormal finding of lung field (principal); R91.1 Solitary pulmonary nodule | CPT/HCPCS: 71250 ==

== ENCOUNTER 2020-08-14 18:32 | Emergency (ER) | payer MEDICARE, OTHER ==
[~2020-08-14] VITALS: Ht 160 cm; Wt 74.9 kg
[~2020-08-14 18:32] MED LIST changes: +AMLO-211 PO; -AMLO10TA8 PO
--- NOTE | 2020-08-14 20:00 | NUR ---
Patient presents to ER c/o blurry vision since this pm. Patient states it started in both eyes but worse in the left. Denies pain, dizziness, or headache. Blurry vision has improved but still present. Patient in NAD. Respirations even and unlabored.
[2020-08-14 20:17] LABS: BASOPHILS % (AUTO) 2 % (0-1); EOSINOPHILS % (AUTO) 1 % (1-7); LYMPHOCYTES % (AUTO) 8 % (22-44); MEAN CORPUSCULAR HEMOGLOBIN 25.7 pg (27.0-34.8); MEAN CORPUSCULAR HGB CONC 32.6 g/dL (32.4-35.8); MEAN PLATELET VOLUME 9.4 fL (7.4-10.4); MONOCYTES % (AUTO) 9 % (2-9); NEUTROPHILS % (AUTO) 81 % (42-75); PLATELET COUNT 378 x10^3/uL (130-400); RED BLOOD COUNT 6.35 x10^6/uL (3.82-5.3); RED CELL DISTRIBUTION WIDTH 18.3 % (9.6-15.2)
[2020-08-14 20:26] LABS: CALCIUM 9.8 mg/dL (8.5-10.1); CREATININE 1.39 mg/dL (0.55-1.02)
[2020-08-14 20:34] LABS: ANION GAP 4 mmol/L (5-15); CHLORIDE 109 mmol/L (98-107)
[2020-08-14 20:41] LABS: MD SCAN
--- NOTE | 2020-08-14 21:45 | NUR ---
Patient up to bedside commode with no assistance.
[2020-08-14 22:07] VITALS: BP 151/76
[2020-08-14] MEDS ORDERED: PROPARACAINE OPHTH 0.5%, 15ML ONE (22:39)
== END 2020-08-14 23:16 | disposition home or self-care (01) ==
LOC: ED 19:48
DX: H40.212 Acute angle-closure glaucoma, left eye (principal); H54.3 Unqualified visual loss, both eyes; R94.31 Abnormal electrocardiogram [ECG] [EKG]; R51.9 Headache, unspecified
CPT/HCPCS: 36415; 70450; 80048; 82040; 85025; 93005; 99285

== ENCOUNTER 2020-08-26 21:40 | Emergency (ER) | payer MEDICARE, OTHER ==
[~2020-08-26] VITALS: Ht 162.6 cm; Wt 77.0 kg
[2020-08-26 22:36] LABS: MEAN CORPUSCULAR HEMOGLOBIN 25.5 pg (27.0-34.8); MEAN PLATELET VOLUME 9.3 fL (7.4-10.4); PLATELET COUNT 384 x10^3/uL (130-400); RED BLOOD COUNT 6.13 x10^6/uL (3.82-5.3); RED CELL DISTRIBUTION WIDTH 18.7 % (9.6-15.2)
[2020-08-26 22:44] LABS: ALANINE AMINOTRANSFERASE 14 U/L (12-78); ALBUMIN 3.7 g/dL (3.4-5.0); ANION GAP 5 mmol/L (5-15); CALCIUM 9.7 mg/dL (8.5-10.1); CHLORIDE 110 mmol/L (98-107); CREATININE 0.94 mg/dL (0.55-1.02)
[2020-08-26 22:48] LABS: ALKALINE PHOSPHATASE 88 U/L (45-117); BILIRUBIN,TOTAL 0.3 mg/dL (0.2-1.0); TOTAL PROTEIN 6.7 g/dL (6.4-8.2); TROPONIN I < 0.015 ng/mL (0.000-0.045)
[2020-08-26 23:01] LABS: MICROSCOPIC AUTO
[2020-08-26 23:08] LABS: MD YES
[2020-08-26 23:16] LABS: ANISOCYTOSIS 1+; BASOS#(MANUAL) 0.08 x10^3/uL (0-0.1); BASOS% (MANUAL) 1 % (0-1); LYMPH#(MANUAL) 1.01 x10^3/uL (1-3.4); LYMPHS% (MANUAL) 12 % (22-44); METAMYELOCYTES# (MANUAL) 0.08 x10^3/uL (0-0); METAMYELOCYTES% (MANUAL) 1 % (0-1); MICROCYTOSIS 1+; MONOS#(MANUAL) 0.59 x10^3/uL (0.3-2.7); MONOS% (MANUAL) 7 % (2-9); OVALOCYTES 1+; SEG#(MANUAL) 6.64 x10^3/uL (1.8-6.8); SEGS% (MANUAL) 79 % (42-75)
[2020-08-26 23:17] LABS: <PLATELET ESTIMATE> ADEQUATE; LARGE PLATELETS 1+
[2020-08-26 23:28] VITALS: BP 155/80
== END 2020-08-27 00:39 | disposition home or self-care (01) ==
LOC: ED 23:06
DX: R60.0 Localized edema (principal); R53.1 Weakness; R42 Dizziness and giddiness; I11.0 Hypertensive heart disease with heart failure; I50.9 Heart failure, unspecified; I25.2 Old myocardial infarction; I48.91 Unspecified atrial fibrillation; J43.9 Emphysema, unspecified; F17.210 Nicotine dependence, cigarettes, uncomplicated; Z85.3 Personal history of malignant neoplasm of breast
CPT/HCPCS: 36415; 71045; 80053; 81001; 83605; 84145; 84484; 85025; 93005; 99406

== ENCOUNTER 2020-11-16 15:25 | Emergency (ER) | payer MEDICARE, OTHER ==
[~2020-11-16] VITALS: Ht 160 cm; Wt 74.7 kg
[~2020-11-16 15:25] MED LIST changes: +ANTIVERT PO; +CEFD300C37 PO; +CLON0.1T2 PO; +FERR324T23 PO; -OMEP40CA42 PO; +OMEP40CA8 PO; +POTA20TA14 PO; +VALS80TA30 PO
--- NOTE | 2020-11-16 15:46 | NUR ---
patient arrives with daughter with an infection to right big toe that began about 10 days ago with an ingrown toe nail. patient went to [facility] and he put her on doxycycline 100mg bid and she took all of them (today last day). toe still causing pain, and patient feeling weak and nauseated.
--- NOTE | 2020-11-16 17:45 | NUR ---
straight cath'd patient, she's incontinent urine so cath'd patient; had 400 clear yellow urine out
[2020-11-16 17:57] LABS: BASOPHILS % (AUTO) 1 % (0-1); EOSINOPHILS % (AUTO) 0 % (1-7); LYMPHOCYTES % (AUTO) 11 % (22-44); MEAN CORPUSCULAR HEMOGLOBIN 26.7 pg (27.0-34.8); MEAN CORPUSCULAR HGB CONC 32.7 g/dL (32.4-35.8); MEAN PLATELET VOLUME 10.5 fL (7.4-10.4); MONOCYTES % (AUTO) 7 % (2-9); NEUTROPHILS % (AUTO) 81 % (42-75); PLATELET COUNT 351 x10^3/uL (130-400); RED BLOOD COUNT 5.96 x10^6/uL (3.82-5.3); RED CELL DISTRIBUTION WIDTH 21.2 % (9.6-15.2)
[2020-11-16 18:04] LABS: ALANINE AMINOTRANSFERASE 17 U/L (12-78); ALBUMIN 3.6 g/dL (3.4-5.0); ANION GAP 7 mmol/L (5-15); CALCIUM 9.7 mg/dL (8.5-10.1); CHLORIDE 106 mmol/L (98-107); CREATININE 0.95 mg/dL (0.55-1.02)
[2020-11-16 18:06] LABS: ALKALINE PHOSPHATASE 100 U/L (45-117); BILIRUBIN,TOTAL 0.6 mg/dL (0.2-1.0); TOTAL PROTEIN 6.7 g/dL (6.4-8.2)
[2020-11-16 18:09] LABS: MICROSCOPIC AUTO
--- NOTE | 2020-11-16 18:35 | NUR ---
CALLED [facility] AND THE STUDY SHE HAS ORDERED IS DONE BY [facility]. CALLED THEM [phone] NO ANSWER
--- NOTE | 2020-11-16 19:06 | NUR ---
RECEIVE REPORT FROM CHRISTEN NICOLE
--- NOTE | 2020-11-16 19:46 | NUR ---
[facility] US PERFORMED US ON TOE.
--- NOTE | 2020-11-16 20:06 | NUR ---
XRAY AT BEDSIDE
[2020-11-16 21:04] VITALS: BP 148/82
== END 2020-11-16 21:06 | disposition home or self-care (01) ==
LOC: ED 21:00
DX: R11.0 Nausea (principal); R53.1 Weakness; R42 Dizziness and giddiness; R51.9 Headache, unspecified; R06.02 Shortness of breath; R60.0 Localized edema; I49.1 Atrial premature depolarization; I11.0 Hypertensive heart disease with heart failure; I50.9 Heart failure, unspecified; J44.9 Chronic obstructive pulmonary disease, unspecified; I25.10 Atherosclerotic heart disease of native coronary artery without angina pectoris; I25.2 Old myocardial infarction; I48.91 Unspecified atrial fibrillation; F17.200 Nicotine dependence, unspecified, uncomplicated; Z88.0 Allergy status to penicillin; Z88.2 Allergy status to sulfonamides
CPT/HCPCS: 36415; 71045; 80053; 81001; 83605; 84145; 85025; 87040; 93005; 93922; 99285

== ENCOUNTER 2021-01-08 12:36 | Emergency (ER) | payer MEDICARE, OTHER ==
[~2021-01-08] VITALS: Ht 161.3 cm; Wt 70.5 kg
[2021-01-08 13:17] LABS: MEAN CORPUSCULAR HEMOGLOBIN 26.7 pg (27.0-34.8); MEAN PLATELET VOLUME 9.6 fL (7.4-10.4); PLATELET COUNT 364 x10^3/uL (130-400); RED BLOOD COUNT 6.33 x10^6/uL (3.82-5.3); RED CELL DISTRIBUTION WIDTH 17.2 % (9.6-15.2)
[2021-01-08 13:31] LABS: ALBUMIN 3.6 g/dL (3.4-5.0); ANION GAP 7 mmol/L (5-15); CALCIUM 11.1 mg/dL (8.5-10.1); CHLORIDE 108 mmol/L (98-107); CREATININE 0.89 mg/dL (0.55-1.02); LYMPHS% (MANUAL) 11 % (22-44); MONOS#(MANUAL) 0.46 x10^3/uL (0.3-2.7); MONOS% (MANUAL) 5 % (2-9); REACTIVE LYMPHS # (MANUAL) 0.18 x10^3/uL (0-0); REACTIVE LYMPHS % (MANUAL) 2 % (0-0); SEG#(MANUAL) 7.46 x10^3/uL (1.8-6.8); SEGS% (MANUAL) 82 % (42-75)
[2021-01-08 13:32] LABS: ECHINOCYTES 1+; OVALOCYTES 1+
[2021-01-08 13:33] LABS: <PLATELET ESTIMATE> ADEQUATE; <PLT MORPHOLOGY> NORMAL PLT MORPH
[2021-01-08 13:35] LABS: TROPONIN I < 0.015 ng/mL (0.000-0.045)
--- NOTE | 2021-01-08 14:24 | NUR ---
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
[2021-01-08] MEDS ORDERED: ONDANSETRON ODT 4 MG ONE (14:42)
[2021-01-08] MEDS ORDERED: ONDANSETRON ODT 4 MG PO ONE (15:00)
[2021-01-08 15:16] LABS: FREE T4 (FREE THYROXINE) 1.33 ng/dL (0.76-1.46)
[2021-01-08 16:46] VITALS: BP 142/84
== END 2021-01-08 17:04 | disposition home or self-care (01) ==
LOC: ED 17:03
DX: R53.1 Weakness (principal); R06.00 Dyspnea, unspecified; R11.0 Nausea; R42 Dizziness and giddiness; F17.200 Nicotine dependence, unspecified, uncomplicated; J44.9 Chronic obstructive pulmonary disease, unspecified; I11.0 Hypertensive heart disease with heart failure; I50.9 Heart failure, unspecified; I48.91 Unspecified atrial fibrillation; I25.2 Old myocardial infarction
CPT/HCPCS: 36415; 71045; 80048; 82040; 83880; 84439; 84443; 84484; 85025; 93005; 99285; Q0162

== ENCOUNTER 2021-02-03 20:06 | Emergency (ER) | payer MEDICARE, OTHER ==
[~2021-02-03] VITALS: Ht 160 cm; Wt 67.3 kg
[2021-02-03 20:46] LABS: MEAN CORPUSCULAR HEMOGLOBIN 27.3 pg (27.0-34.8); MEAN CORPUSCULAR HGB CONC 33.1 g/dL (32.4-35.8); MEAN PLATELET VOLUME 9.3 fL (7.4-10.4); PLATELET COUNT 288 x10^3/uL (130-400); RED BLOOD COUNT 6.21 x10^6/uL (3.82-5.3); RED CELL DISTRIBUTION WIDTH 18.8 % (9.6-15.2)
[2021-02-03 20:55] LABS: ALBUMIN 3.5 g/dL (3.4-5.0); ANION GAP 5 mmol/L (5-15); CALCIUM 10.3 mg/dL (8.5-10.1); CHLORIDE 107 mmol/L (98-107)
[2021-02-03 21:00] LABS: ALANINE AMINOTRANSFERASE 19 U/L (12-78); ALKALINE PHOSPHATASE 86 U/L (45-117); BILIRUBIN,TOTAL 0.7 mg/dL (0.2-1.0); CREATININE 0.96 mg/dL (0.55-1.02); TOTAL PROTEIN 6.7 g/dL (6.4-8.2); TROPONIN I < 0.015 ng/mL (0.000-0.045)
[2021-02-03 21:18] LABS: BAND#(MANUAL) 0.08 x10^3/uL; BANDS%(MANUAL) 1 % (0-7); EOS#(MANUAL) 0.08 x10^3/uL (0.0-0.4); EOS% (MANUAL) 1 % (1-7); LYMPH#(MANUAL) 0.68 x10^3/uL (1-3.4); LYMPHS% (MANUAL) 9 % (22-44); METAMYELOCYTES# (MANUAL) 0.15 x10^3/uL (0-0); METAMYELOCYTES% (MANUAL) 2 % (0-1); MONOS#(MANUAL) 0.83 x10^3/uL (0.3-2.7); MONOS% (MANUAL) 11 % (2-9); OVALOCYTES 1+; REACTIVE LYMPHS # (MANUAL) 0.08 x10^3/uL (0-0); REACTIVE LYMPHS % (MANUAL) 1 % (0-0); SEG#(MANUAL) 5.63 x10^3/uL (1.8-6.8); SEGS% (MANUAL) 75 % (42-75)
[2021-02-03 21:19] LABS: <PLATELET ESTIMATE> ADEQUATE; ANISOCYTOSIS 1+; LARGE PLATELETS 1+
--- NOTE | 2021-02-04 00:19 | NUR ---
PT TO ROOM FROM LOBBY
--- NOTE | 2021-02-04 01:07 | NUR ---
MUSA HERNÁNDEZ COLLECTED AND SENT TO LAB
[2021-02-04 01:26] LABS: MICROSCOPIC INDICATED
[2021-02-04 02:32] VITALS: BP 148/96
--- NOTE | 2021-02-04 02:33 | NUR ---
Patient given discharge instructions and they have confirmed that they understand the instructions. Patient ambulatory with steady gait with ffw. NAD, all questions answered appropriately, denies additional needs at this time. No personal belongings left in room after discharge.
== END 2021-02-04 02:34 | disposition home or self-care (01) ==
LOC: ED 20:30
DX: R42 Dizziness and giddiness (principal); R05 Cough; R53.1 Weakness; R07.89 Other chest pain; R11.0 Nausea; I48.91 Unspecified atrial fibrillation; F17.210 Nicotine dependence, cigarettes, uncomplicated; I25.2 Old myocardial infarction; J43.9 Emphysema, unspecified; I11.0 Hypertensive heart disease with heart failure; I50.9 Heart failure, unspecified; Z85.3 Personal history of malignant neoplasm of breast; Z90.710 Acquired absence of both cervix and uterus; Z88.0 Allergy status to penicillin; Z88.2 Allergy status to sulfonamides; Z86.73 Personal history of transient ischemic attack (TIA), and cerebral infarction without residual deficits
CPT/HCPCS: 36415; 71045; 80053; 81001; 84443; 84484; 85025; 93005; 99285